=== PATIENT | female | born 1950 | race Caucasian/White ===

== ENCOUNTER → 2025-05-12 13:44 | Outpatient (BNVA) | payer SELFPAY | PROVIDERS: Visit Provider Psychiatry & Neurology Neurology | DX: Z01.89 Encounter for other specified special examinations (principal) | CPT/HCPCS: 87086 ==

== ENCOUNTER → 2025-05-19 10:16 | Outpatient (BNVA) | payer SELFPAY | PROVIDERS: Visit Provider Psychiatry & Neurology Neurology | DX: Z53.9 Procedure and treatment not carried out, unspecified reason (principal) | CPT/HCPCS: 87040; 87070; 87086 ==

== ENCOUNTER → 2025-05-26 12:18 | Outpatient (BNVA) | payer SELFPAY | PROVIDERS: Visit Provider Psychiatry & Neurology Neurology | DX: Z53.09 Procedure and treatment not carried out because of other contraindication (principal) | CPT/HCPCS: 87040; 87086; 87186 ==

== ENCOUNTER → 2025-06-02 13:37 | Outpatient (BNVA) | payer SELFPAY | PROVIDERS: Visit Provider Psychiatry & Neurology Neurology | DX: Z01.89 Encounter for other specified special examinations (principal) | CPT/HCPCS: 87070; 87086 ==